=== PATIENT | male | born 1975 | race Caucasian/White ===

== ENCOUNTER 2020-11-06 11:10 | Emergency (ER) | payer MEDICAID ==
[~2020-11-06] VITALS: Ht 167.6 cm; Wt 86.2 kg
[2020-11-06 11:24] VITALS: BP_SYST 157
--- NOTE | 2020-11-06 11:28 | NUR ---
Patient to ER bed 8 to gown for evaluation. Side rails up. Report given to LAYNE MUSTAFA.
--- NOTE | 2020-11-06 11:35 | NUR ---
Pt walked in to ER with c/o RLE pain, s/p injury while playing basketball. Pain 2/10 when applying pressure. V/S stable, no acute distress noted.
--- NOTE | 2020-11-06 11:42 | NUR ---
ER Dr. Hudson at bedside examining patient.
--- NOTE | 2020-11-06 12:10 | NUR ---
Radiology at bedside for leg x-ray.
[2020-11-06] MEDS ORDERED: IBUP-1970 PO (13:05)
[2020-11-06 13:35] VITALS: BP_SYST 142
--- NOTE | 2020-11-06 13:36 | NUR ---
Patient given written and verbal discharge instructions and verbalizes understanding. ER MD discussed with patient the results and treatment provided. Patient in stable condition. ID arm band removed. Rx of Motrin given. Patient educated on pain management and to follow up with PMD. Pain Scale 0. Opportunity for questions provided and answered. Medication side effect fact sheet provided.
== END 2020-11-06 13:35 | disposition home or self-care (01) ==
LOC: SED 11:10
DX: M79.661 Pain in right lower leg (principal); M25.571 Pain in right ankle and joints of right foot
CPT/HCPCS: 73590-TC; 99283

== ENCOUNTER 2023-06-22 06:10 | Emergency (ER) | payer MEDICAID ==
[~2023-06-22] VITALS: Ht 165.1 cm; Wt 94.3 kg
[~2023-06-22 06:10] MED LIST: IBUP-1970 PO
[2023-06-22 06:25] VITALS: BP_SYST 162; PULSE 92; RESP 16; TEMP 98.6; O2SAT 97
[2023-06-22] MEDS: ACETAMINOPHEN 325 MG TABLET PO ONE (07:24)
[2023-06-22 07:38] LABS: INFLUENZA TYPE A Negative (NEGATIVE); INFLUENZA TYPE B NEGATIVE (NEGATIVE)
[2023-06-22] MEDS ORDERED: PENI250T2 PO (09:17)
[2023-06-22] MEDS ORDERED: CARB15DR93 RIGHT EAR (09:19)
[2023-06-22 09:43] VITALS: BP_SYST 157; PULSE 89; RESP 16; TEMP 98.8; O2SAT 98
== END 2023-06-22 09:38 | disposition home or self-care (01) ==
LOC: SED 06:10
DX: H61.21 Impacted cerumen, right ear (principal); J02.9 Acute pharyngitis, unspecified; R05.9 Cough, unspecified; E11.9 Type 2 diabetes mellitus without complications; I10 Essential (primary) hypertension; Z79.899 Other long term (current) drug therapy; Z20.822 Contact with and (suspected) exposure to COVID-19
CPT/HCPCS: 36415; 84484; 86403; 87081; 93005; 99284